=== PATIENT | male | born 1990 | race Caucasian/White ===

== ENCOUNTER 2022-05-10 18:03 | Emergency (ER) | payer SELFPAY ==
[~2022-05-10] VITALS: Ht 172.7 cm; Wt 98.9 kg
[2022-05-10 18:05] VITALS: BP_SYST 151
--- NOTE | 2022-05-10 18:05 | NUR ---
Placed in room 6 . Placed on data support analyst, blood pressure machine and pulse oximeter. To gown for exam. Side rails up. Report given to MICKEY BOBO.
[2022-05-10] MEDS ORDERED: LIDOCAINE/EPI 1% 1:100000 20 ML VIAL INJ ONE (18:15)
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
--- NOTE | 2022-05-10 18:21 | NUR ---
ER DR. DOUGLAS AT THE BEDSIDE EXAMINING PT
[2022-05-10] MEDS ORDERED: BACITRACIN 1 GM OINT TP ONE (18:30)
[2022-05-10 18:46] VITALS: BP_SYST 123
--- NOTE | 2022-05-10 18:46 | NUR ---
Patient given written and verbal discharge instructions and verbalizes understanding. ER MD discussed with patient the results and treatment provided. Patient in stable condition. ID arm band removed. NO RX given. Patient educated on pain management and to follow up with PMD. Pain Scale 0/10 Opportunity for questions provided and answered.
== END 2022-05-10 18:46 | disposition home or self-care (01) ==
LOC: SED 18:03
DX: S01.81XA Laceration without foreign body of other part of head, initial encounter (principal); Z79.899 Other long term (current) drug therapy; V18.0XXA Pedal cycle driver injured in noncollision transport accident in nontraffic accident, initial encounter; Y93.89 Activity, other specified; Y92.89 Other specified places as the place of occurrence of the external cause; Y99.8 Other external cause status
CPT/HCPCS: 99282